=== PATIENT | female | born 1985 | race African-American/Black ===

== ENCOUNTER 2022-02-28 05:55 | Emergency (ER) | payer OTHER, MEDICARE ==
[~2022-02-28] VITALS: Ht 170.2 cm; Wt 80.0 kg
[2022-02-28] MEDS ORDERED: SODIUM CHLORIDE 0.9% 1,000 ML IV ONE (06:00)
[2022-02-28] MEDS ORDERED: LEVETIRACETAM 1000MG PREMIX 100 ML IV ONE (06:15)
[2022-02-28] MEDS ORDERED: MIDAZOLAM HCL 2 MG/2 ML VIAL IV ONE (06:15)
[2022-02-28 06:21] LABS: CHLORIDE 103 mEq/L (98-107)
[2022-02-28 06:22] LABS: BASOPHILS % 0.5 % (0.0-2.0); EOSINOPHILS % 1.3 % (0.0-5.0); HEMATOCRIT. 39.9 % (36.0-48.0); HEMOGLOBIN. 12.9 g/dL (12.0-16.0); MEAN CORPUSCULAR HEMOGLOBIN 28.4 pg (28.0-32.0); MEAN CORPUSCULAR VOLUME 88.3 fL (81.0-99.0); MEAN PLATELET VOLUME 8.3 fl (7.4-10.4); MONOCYTES % 7.1 % (2.0-8.0); NEUTROPHILS % 53.1 % (40.0-76.0); PLATELET 284 x1000/uL (130-400); RED BLOOD CELL COUNT 4.52 mill/uL (4.2-5.4); RED CELL DISTRIBUTION WIDTH 14.3 % (11.6-14.6)
[2022-02-28 06:29] LABS: HCG SCREEN NEGATIVE
[2022-02-28 06:46] LABS: CREATINE KINASE 160 IU/L (26-192); ETHANOL BLOOD < 10 mg/dL
[2022-02-28 07:08] LABS: CLARITY URINE CLEAR (CLEAR); COLOR URINE YELLOW (YELLOW); KETONES URINE NEGATIVE (NEGATIVE); LEUKOCYTE ESTERASE URINE NEGATIVE (NEGATIVE); NITRITE URINE NEGATIVE (NEGATIVE); OCCULT BLOOD URINE NEGATIVE (NEGATIVE); PROTEIN URINE NEGATIVE (NEGATIVE); SPECIFIC GRAVITY URINE 1.015 (1.005-1.030); UROBILINOGEN URINE 0.2 E.U./dL (0.2-1.0)
[2022-02-28 07:24] LABS: *BARBITURATES SCREEN URINE NEGATIVE (NEGATIVE); *COCAINE SCREEN URINE NEGATIVE (NEGATIVE); CANNABINOID URINE SCREEN NEGATIVE (NEGATIVE); METHADONE URINE SCREEN NEGATIVE (NEGATIVE); PHENCYCLIDINE URINE SCREEN NEGATIVE (NEGATIVE)
[2022-02-28 07:28] LABS: *AMPHETAMINES SCREEN URINE PRESUMTIVE POSITIVE (NEGATIVE); *BENZODIAZEPINES SCREEN URINE PRESUMTIVE POSITIVE (NEGATIVE); OPIATES URINE SCREEN PRESUMTIVE POSITIVE (NEGATIVE)
[2022-02-28] MEDS ORDERED: ACETAMINOPHEN 325MG TABLET PO PRN (10:30)
[2022-02-28 15:45] VITALS: BP 114/74
== END 2022-02-28 16:16 | disposition left against medical advice (07) ==
LOC: ER 05:55 → EDBEDREQSVC 08:32 → EDBEDREQ 08:32 → EDBEDREQTM 08:32 → EDBEDREQSVC 10:30 → CANBEDREQ 15:55 → ER 16:16
DX: T43.221A Poisoning by selective serotonin reuptake inhibitors, accidental (unintentional), initial encounter (principal); Y92.89 Other specified places as the place of occurrence of the external cause; R56.9 Unspecified convulsions; F15.10 Other stimulant abuse, uncomplicated; E87.2 Acidosis; F32.9 Major depressive disorder, single episode, unspecified; R00.0 Tachycardia, unspecified
CPT/HCPCS: 36415; 70450; 71045; 80053; 80305; 80307; 80320; 80329; 81003; 81025; 82550; 82962; 83690; 83735; 84443; 84703; 85025; 85610; 93005; 96365; 96375; 99291; J1953; J2250; J7030; G0480